=== PATIENT | male | born 2000 | race Hispanic/Latino ===

== ENCOUNTER 2025-09-14 08:54 | Emergency (ER) | payer SELFPAY | END 2025-09-14 09:49 | disposition home or self-care (01) | LOC: MADERS 08:54 | DX: J11.1 Influenza due to unidentified influenza virus with other respiratory manifestations (principal) | CPT/HCPCS: 99282 ==

== ENCOUNTER 2025-09-27 10:13 | Emergency (ER) | payer SELFPAY ==
[2025-09-27] MEDS ORDERED: Azithromycin 250 MG TAB ONE (11:05)
[2025-09-27] MEDS ORDERED: Ketorolac Tromethamine 30 MG (1 mL) VIAL ONE (11:05)
[2025-09-27] MEDS ORDERED: Dicyclomine 10 MG CAP ONE (11:05)
[2025-09-27] MEDS ORDERED: Ondansetron PF 4 MG/2 ML Vial ONE (11:05)
[2025-09-27 11:15] LABS: #Basophils 0.2 thou/uL (0.0-0.2); #Eosinophils 0.0 thou/uL (0.0-0.7); #Lymphocytes 1.6 thou/uL (1.20-3.40); #Monocytes 1.0 thou/uL (0.11-0.59); #Neutrophils 8.8 thou/uL (1.40-6.50); %Basophils 1.5 % (0.0-1.0); %Eosinophils 0.2 % (0.0-10.0); %Lymphocytes 14.0 % (21.0-51.0); %Monocytes 8.5 % (0.0-10.0); %Neutrophils 75.8 % (42.0-75.0); Hematocrit 49.7 % (42.0-52.0); Hemoglobin 15.7 g/dL (14.0-18.0); Mean Corpuscular Hemoglobin 28.7 pg (27.0-31.0); Mean Corpuscular Volume 91.0 fl (78.0-98.0); Platelet Count 330 10x3/uL (130-400); Red Blood Cell (RBC) Count 5.46 mill/uL (4.70-6.10); White Blood Cell (WBC) Count 11.6 10x3/uL (4.8-10.8)
[2025-09-27] MEDS ORDERED: Diphenoxylate HCl/Atropine Tablet ONE (11:21)
[2025-09-27 11:29] LABS: Troponin I Less than 0.010 ng/mL (< 0.028)
[2025-09-27 11:30] LABS: ALT (SGPT) 22 U/L (Less than 45); AST (SGOT) 19 U/L (11-34); Albumin 3.9 g/dL (3.1-4.5); Alkaline Phosphatase 85 U/L (40-110); Anion Gap 22 mmol/L (10-20); BUN (Urea Nitrogen) 13 mg/dL (8.9-20.6); Bilirubin, Total 0.6 mg/dL (0.3-1.2); Calc. Creatinine Clearance 0 mL/min (70-130); Calcium 9.7 mg/dL (7.8-10.44); Carbon Dioxide 21 mmol/L (22-29); Chloride 104 mmol/L (98-107); Globulin 3.4 g/dL (2.4-3.5); Glucose 110 mg/dL (70-105); Lipase 11 U/L (8-78); Magnesium 2.2 mg/dL (1.6-2.6); Potassium 4.1 mmol/L (3.5-5.1); Sodium 143 mmol/L (136-145)
[2025-09-27 23:56] LABS: Campy jejuni + coli by PCR Negative (Negative); STEC Shiga Toxin 1+2 Negative (Negative); Salmonella spp. by PCR Negative (Negative); Shigella spp + EIEC by PCR Negative (Negative)
== END 2025-09-27 12:36 | disposition home or self-care (01) ==
LOC: MADERS 10:13
DX: K52.9 Noninfective gastroenteritis and colitis, unspecified (principal); F17.210 Nicotine dependence, cigarettes, uncomplicated; F17.220 Nicotine dependence, chewing tobacco, uncomplicated
CPT/HCPCS: 36415; 71046; 80053; 83605; 83690; 83735; 84484; 85025; 87040; 87428; 87505; 93005; 94760; 96361; 96374; 96375; J1885; J2405; J3411; J7120